=== PATIENT | male | born 1995 | race Asian ===

== ENCOUNTER 2022-05-17 21:53 | Emergency (ER) | payer SELFPAY ==
[~2022-05-17] VITALS: Ht 177.8 cm; Wt 77.0 kg
[2022-05-17] MEDS ORDERED: TOPIRAMATE 25MG TABLET PO STA (22:37)
[2022-05-17] MEDS ORDERED: TOPI25CA6 MT (22:48)
[2022-05-17 23:36] VITALS: BP 123/70
== END 2022-05-18 | disposition left against medical advice (07) ==
LOC: ER 21:53
DX: R56.9 Unspecified convulsions (principal)
CPT/HCPCS: 99283

== ENCOUNTER 2022-05-18 06:10 | Emergency (ER) | payer OTHER ==
[~2022-05-18] VITALS: Ht 170.2 cm; Wt 75.0 kg
[~2022-05-18 06:10] MED LIST: TOPI25CA6 MT
[2022-05-18 08:54] VITALS: BP 126/86
== END 2022-05-18 08:58 | disposition home or self-care (01) ==
LOC: ER 06:10
DX: G40.909 Epilepsy, unspecified, not intractable, without status epilepticus (principal); Z98.890 Other specified postprocedural states
CPT/HCPCS: 99281